=== PATIENT | male | born 1960 | race Caucasian/White ===

== ENCOUNTER 2017-01-21 08:40 | Emergency (ER) | payer OTHER ==
[~2017-01-21] VITALS: Ht 188 cm; Wt 129.0 kg
[~2017-01-21 08:40] MED LIST: OXYC-57 PO
[2017-01-21 08:47] VITALS: Ht 188 cm; Wt 129.0 kg
[2017-01-21] MEDS ORDERED: LEVO75TA PO (09:15)
[2017-01-21] MEDS ORDERED: LISI10TA PO (09:15)
--- NOTE | 2017-01-21 09:41 | EMERGENCY ROOM VISIT NOTE ---
ED Visit Note First contact with patient: 08:57 CHIEF COMPLAINT: Foot pain HISTORY OF PRESENT ILLNESS: This 56-year-old male patient presents to the emergency department complaining of swelling and pain in the right ankle and foot at rest and worse with weight bearing. The patient states about a week ago he was moving his motorcycle and he felt a sudden pain in his foot which has not gotten better. He states the pain and swelling has spread to his medial ankle, though he denies any twisting or other injury to the ankle. The patient rates the pain as aching and 5/10. The patient has Aleve with some relief of the pain. The patient is able to walk. No numbness or weakness. No ankle pain. There are no lacerations of the foot. The patient is able to move all of their toes and their ankle without pain. No previous fracture to this foot. Patient also complains of posterior calf swelling and tenderness that started yesterday. He does note a recent 3 hour plane trip earlier this week. REVIEW OF SYSTEMS: GENERAL: A 6 system review of systems was completed with positives and pertinent negatives in the HPI. ALLERGIES: NKA MEDICATIONS: Reviewed in chart PMH: HTN, hypothyroidism SOCIAL HISTORY: , lives with . Never smoker. PHYSICAL EXAM: Vital Signs: Reviewed Nurse's notes, vital signs stable. GENERAL : Pleasant and cooperative, in no acute distress, well-developed, well- nourished. MUSCULOSKELETAL: There is no visual deformity of the right foot. There is no erythema no ecchymosis. There is slight warmth. There is tenderness and swelling over the dorsum of the right foot. There is tenderness and moderate swelling over the medial ankle, but no tenderness over the lateral malleolus. No tenderness of the tib/fib. There is mild tenderness of the posterior knee and calf to palpation. Negative Homans sign. The range of motion of the right lower extremity is not limited secondary to pain. The skin is intact and there are no lacerations or puncture wounds. Dorsalis pedis pulse 2+. Capillary refill less than 2 seconds. IMAGING: RIGHT LOWER EXTREMITY VENOUS DOPPLER CLINICAL HISTORY: Right calf pain and swelling. Recent travel. COMPARISON STUDY: No previous studies for comparison. TECHNIQUE: Sonography of the deep venous system of the right lower extremity was performed. Compression and augmentation were evaluated. FINDINGS: The common femoral, superficial femoral and popliteal veins were compressible. Augmentation was normal. Note was made of deep venous thrombus within paired right posterior tibial veins.. IMPRESSION: Deep venous thrombus within the right posterior tibial veins. No [id number] thrombus. EMERGENCY DEPARTMENT COURSE: I examined the patient. An X-ray of the right foot and ankle was reviewed by myself and radiology and reveals no acute fracture, moderate medial ankle soft tissue swelling. Ultrasound duplex of the RLE shows acute DVT. Labs were checked to assess platelet count, renal function, and establish a baseline PT/INR. The patient was given bedside education by Jessica, Pharm-D regarding Lovenox injections and Coumadin therapy. Patient was given his first doses here in the emergency department. Patient was instructed to follow up with his PCP regarding his anticoagulation initiation therapy, as the coagulation clinic did not have any available appointment in the near future. Patient was also given strict return precautions, he verbalized understanding. The patient was discharged home in good condition. Medication Reconciliation: I attest that I have personally reviewed the patient' s current medication list. Blood pressure screening: The patient was found to have an elevated blood pressure and was referred to their primary doctor for recheck and further treatment. I discussed the patient with Dr. Berkowitz, who agrees with my assessment and disposition. Current/Historical Medications Scheduled Enoxaparin (Lovenox), 120 MG SQ Q12 Levothyroxine Sodium (Synthroid), 75 MCG PO DAILY Lisinopril (Prinivil), 10 MG PO DAILY Warfarin Sodium (Coumadin), 5 MG PO DAILY Allergies Coded Allergies: No Known Allergies (Verified , 01/21/17) Vital Signs Date Time Temp Pulse Resp B/P (MAP) Pulse Ox O2 Delivery O2 Flow Rate FiO2 01/21/17 14:26 36.9 77 18 133/75 96 01/21/17 14:11 77 18 133/75 96 Room Air 01/21/17 12:10 87 18 114/82 95 Room Air 01/21/17 10:17 82 16 122/84 97 Room Air 01/21/17 08:47 36.9 91 18 140/103 97 Room Air Laboratory Results 01/21/17 11:30 Red Blood Count 5.54, Mean Corpuscular Volume 93.0, Mean Corpuscular Hemoglobin 33.0, Mean Corpuscular Hemoglobin Concent 35.5, Mean Platelet Volume 9.1, Neutrophils (%) (Auto) 58.1, Lymphocytes (%) (Auto) 22.7, Monocytes (%) (Auto) 9.8, Eosinophils (%) (Auto) 8.5, Basophils (%) (Auto) 0.5, Neutrophils # (Auto) 5.51, Lymphocytes # (Auto) 2.16, Monocytes # (Auto) 0.93, Eosinophils # (Auto) 0.81, Basophils # (Auto) 0.05 01/21/17 11:30 Test 01/21/17 11:30 White Blood Count 9.50 K/uL (4.8-10.8) Red Blood Count 5.54 M/uL (4.7-6.1) Hemoglobin 18.3 g/dL (14.0-18.0) Hematocrit 51.5 % (42-52) Mean Corpuscular Volume 93.0 fL (80-100) Mean Corpuscular Hemoglobin 33.0 pg (25-34) Mean Corpuscular Hemoglobin Concent 35.5 g/dl (32-36) Platelet Count 172 K/uL (130-400) Mean Platelet Volume 9.1 fL (7.4-10.4) Neutrophils (%) (Auto) 58.1 % Lymphocytes (%) (Auto) 22.7 % Monocytes (%) (Auto) 9.8 % Eosinophils (%) (Auto) 8.5 % Basophils (%) (Auto) 0.5 % Neutrophils # (Auto) 5.51 K/uL (1.4-6.5) Lymphocytes # (Auto) 2.16 K/uL (1.2-3.4) Monocytes # (Auto) 0.93 K/uL (0.11-0.59) Eosinophils # (Auto) 0.81 K/uL (0-0.5) Basophils # (Auto) 0.05 K/uL (0-0.2) RDW Standard Deviation 42.9 fL (36.4-46.3) RDW Coefficient of Variation 12.6 % (11.5-14.5) Immature Granulocyte % (Auto) 0.4 % Immature Granulocyte # (Auto) 0.04 K/uL (0.00-0.02) Prothrombin Time 10.5 SECONDS (9.0-12.0) Prothromb Time International Ratio 1.0 (0.9-1.1) Activated Partial Thromboplast Time 27.2 SECONDS (21.0-31.0) Partial Thromboplastin Ratio 1.0 Anion Gap 7.0 mmol/L (3-11) Est Creatinine Clear Calc Drug Dose 90.6 ml/min Estimated GFR () 70.7 Estimated GFR (Non- 61.0 BUN/Creatinine Ratio 15.4 (10-20) Calcium Level 9.0 mg/dl (8.5-10.1) Medications Administered Medications (Trade) Dose Ordered Sig/Arun Route Start Time Stop Time Status Last Admin Dose Admin Acetaminophen (Tylenol Tab) 1,000 mg NOW STAT PO 01/21/17 11:25 01/21/17 11:27 DC 01/21/17 11:54 1,000 MG Warfarin Sodium (Coumadin Tab) 5 mg NOW ONCE PO 01/21/17 12:15 01/21/17 12:16 DC 01/21/17 13:17 5 MG Enoxaparin Sodium (Lovenox Inj) 120 mg NOW ONCE SQ 01/21/17 12:15 01/21/17 12:16 DC 01/21/17 13:16 120 MG Departure Information Impression Primary Impression: Right leg DVT Dispostion Home / Self-Care Condition GOOD Prescriptions Enoxaparin (LOVENOX) 120 Mg/0.8 Ml Inj 120 MG SQ Q12 for 7 Days, #14 SYR Prov: Claudine Green CRNP 01/21/17 Warfarin Sodium (COUMADIN) 5 Mg Tab 5 MG PO DAILY for 14 Days, #14 TAB Prov: Claudine Green CRNP 01/21/17 Referrals Serena Betancourt D.O. (PCP) Patient Instructions Coumadin, ED DVT, Enoxaparin injection, My [facility] Additional Instructions Follow up closely with your PCP for management of your blood thinner medication. Call today for an appointment. You have been started on two blood thinner medications to treat your blood clot in your right leg. Lovenox injections twice a day for the next 7 days. Coumadin 5 mg tablet once a day in the evening. Both of these medications will increase your risk of bleeding. If you have any cuts, hit your head, or have any other significant injury, you MUST go to the ER for evaluation. You will need to have your levels closely monitored until you are at a stable level. Please return to the emergency department for any worsening symptoms, including chest pain, trouble breathing, severe dizziness or passing out, increasing pain/ swelling/redness of the leg, or any other concerns. Problem Qualifiers Primary Impression: Right leg DVT Affected thrombotic vein of extremity: tibial Chronicity: acute Qualified Codes: I82.441 - Acute embolism and thrombosis of right tibial vein
--- NOTE | 2017-01-21 09:44 | DIAGNOSTIC IMAGING REPORT ---
RIGHT ANKLE MIN 3 VIEWS ROUTINE CLINICAL HISTORY: Medial ankle pain and swelling following injury. COMPARISON: None FINDINGS: Alignment of the right ankle is anatomic. There is no acute fracture. Talar dome is intact. There is moderate medial ankle soft tissue swelling. Note is made of minimal posterior and plantar calcaneal spurring. IMPRESSION: 1. No acute fracture or dislocation of the right ankle. 2. Moderate medial ankle soft tissue swelling. Electronically signed by: Deacon Smith M.D. 01/21/2017 9:42 AM Dictated Date/Time: 01/21/2017 9:41 AM
--- NOTE | 2017-01-21 09:45 | DIAGNOSTIC IMAGING REPORT ---
RIGHT FOOT MIN 3 VIEWS ROUTINE CLINICAL HISTORY: Mid foot pain after lifting heavy object. COMPARISON: None FINDINGS: Tarsometatarsal joints are in intact. Incidental note is made of a bipartite medial sesamoid of the right great toe. No acute fracture is identified within the right foot. Note is made of mild posterior and plantar calcaneal spurring. IMPRESSION: No acute fracture or dislocation of the right foot. Electronically signed by: Deacon Smith M.D. 01/21/2017 9:44 AM Dictated Date/Time: 01/21/2017 9:43 AM
--- NOTE | 2017-01-21 10:51 | DIAGNOSTIC IMAGING REPORT ---
RIGHT LOWER EXTREMITY VENOUS DOPPLER CLINICAL HISTORY: Right calf pain and swelling. Recent travel. COMPARISON STUDY: No previous studies for comparison. TECHNIQUE: Sonography of the deep venous system of the right lower extremity was performed. Compression and augmentation were evaluated. FINDINGS: The common femoral, superficial femoral and popliteal veins were compressible. Augmentation was normal. Note was made of deep venous thrombus within paired right posterior tibial veins.. IMPRESSION: Deep venous thrombus within the right posterior tibial veins. No [id number] thrombus. Electronically signed by: Deacon Smith M.D. 01/21/2017 10:50 AM Dictated Date/Time: 01/21/2017 10:48 AM
[2017-01-21] MEDS ORDERED: ACETAMINOPHEN 500 MG TAB PO STA (11:25)
[2017-01-21 11:49] LABS: BASO % 0.5 %; BASO ABS # 0.05 K/uL (0-0.2); COMPLETE YES; EOS % 8.5 %; HEMATOCRIT 51.5 % (42-52); IG% 0.4 %; LYMPH % 22.7 %; LYMPH ABS # 2.16 K/uL (1.2-3.4); MEAN CORPUSCULAR HGB CONC 35.5 g/dl (32-36); MEAN PLATELET VOLUME 9.1 fL (7.4-10.4); MONO % 9.8 %; NEUT % 58.1 %; PLATELET COUNT 172 K/uL (130-400); RED BLOOD COUNT 5.54 M/uL (4.7-6.1)
[2017-01-21 12:00] LABS: PROTHROMBIN TIME (PATIENT) 10.5 SECONDS (9.0-12.0)
[2017-01-21 12:06] LABS: BUN/CREATININE RATIO 15.4 (10-20); CREATININE 1.3 mg/dl (0.60-1.40); POTASSIUM 4.4 mmol/L (3.5-5.1)
[2017-01-21] MEDS ORDERED: WARFARIN SOD 5 MG TAB PO ONE (12:15)
[2017-01-21] MEDS ORDERED: ENOXAPARIN 120 MG/0.8 ML SYR SQ ONE (12:15)
[2017-01-21] MEDS ORDERED: WARF5TAB90 PO (12:16)
[2017-01-21] MEDS ORDERED: ENOX120I SQ (12:16)
--- NOTE | 2017-01-21 13:42 | Pharmacy Progress Note ---
ED Pharmacist Counseling Note Date of Service: Jan 21, 2017. Patient with new-onset DVT. I spent 30 minutes with the patient and his discussing outpatient management as follows. Weight: 129 kg SCr: 1.3 mg/dL eCrCL: > 30 mL/min Baseline INR: 1.0 Hgb: 18.3 g/dL Plt count: 172 K/uL Home medications: levothyroxine, lisinopril Enoxaparin Dose: 120 mg SC q12h Discussed length of therapy and plan to discontinue once INR therapeutic Discussed proper subQ injection technique and needle disposal Patient completed first self-injection in the ED with nursing supervision/ guidance Warfarin Dose: 5 mg po daily, 1st dose 01/21 in the ED Patient's current outpatient prescriptions were reviewed Discussed the following with the patient Goal INR range 2-3 Importance of outpatient follow-up / INR monitoring Drug interactions and importance of consistency Avoidance of NSAIDs Dietary considerations and importance of consistency Signs/symptoms of bleeding Signs/symptoms of clot Length of therapy - likely 3 months for provoked DVT (recent 3 hr plane ride) [facility] An[facility] Coordination Called [facility] centralized scheduling and attempted to make appointment. However, Dr. Fleming unavailable until 02/01. Recommended following with PCP until [facility] can follow/monitor, if patient and desire to do so. Informed patient and who are aware. Recommended appointment Tuesday or Tuesday (day 3 or 4 of warfarin, respectively). Discharge materials provided to patient Alcohol swabs "Enoxaparin Lovenox" handout (on [employer]) "What to known when taking warfarin" handout (on [employer]) "[id number]: Giving Yourself a Shot" handout (on [employer])
[2017-01-21 14:26] VITALS: BP 133/75; PULSE 77; TEMP 36.9; O2SAT 96
== END 2017-01-21 14:30 | disposition home or self-care (01) ==
LOC: C.EDB 08:41
DX: I82.441 Acute embolism and thrombosis of right tibial vein (principal); I10 Essential (primary) hypertension; E03.9 Hypothyroidism, unspecified

== ENCOUNTER → 2017-05-13 | Outpatient (CLI) | payer OTHER ==
[~2017-05-13] MED LIST changes: +LEVO75TA PO; +LISI10TA PO; -OXYC-57 PO
--- NOTE | 2017-05-13 13:12 | DIAGNOSTIC IMAGING REPORT ---
R VENOUS DOPP LOWER EXT UNILAT HISTORY: 56 years-old Male ACUTE DVT right lower cavity swelling. Follow-up study in a patient with prior right posterior tibial vein DVT COMPARISON: Duplex venous study 01/21/2017 TECHNIQUE: Multiple real-time sonographic images of the deep venous structures of the right lower extremity were obtained assessing grayscale appearance, color and spectral flow FINDINGS: Occlusive thrombus is noted within one of the two paired posterior tibial veins. There is some stranding within the peroneal vein suggesting fibrin without occlusive thrombus. The remaining deep venous structures are patent and within normal limits. IMPRESSION: 1. Occlusive deep venous thrombosis is noted within one of the two paired posterior tibial veins. 2. Fibrin stranding of the peroneal vein without occlusive thrombus. 3. No deep venous thrombosis noted above the level of the knee. The above report was generated using voice recognition software. It may contain grammatical, syntax or spelling errors. Electronically signed by: Jamey Jade M.D. 05/13/2017 1:10 PM Dictated Date/Time: 05/13/2017 1:08 PM
== END | disposition home or self-care (01) ==
LOC: C.ULTR 12:35
PROVIDERS: ATTEND Internal Medicine Hematology
DX: I82.441 Acute embolism and thrombosis of right tibial vein (principal); I82.4Z1 Acute embolism and thrombosis of unspecified deep veins of right distal lower extremity

== ENCOUNTER → 2017-08-24 | Outpatient (CLI) | payer OTHER ==
--- NOTE | 2017-08-24 16:18 | DIAGNOSTIC IMAGING REPORT ---
RIGHT LOWER EXTREMITY VENOUS DOPPLER CLINICAL HISTORY: ACUTE DVT OF RT TIBIAL VEIN COMPARISON STUDY: Right lower extremity venous Doppler May 13, 2017. TECHNIQUE: Sonography of the deep venous system of the right lower extremity was performed. Compression and augmentation were evaluated. FINDINGS: The common femoral, superficial femoral and popliteal veins were compressible. Augmentation was normal. Flow was shown within the deep calf vessels. The deep venous thrombus shown within the right posterior tibial vein on exam of May 13, 2017 is no longer visualized. IMPRESSION: No evidence of deep venous thrombus within the right lower extremity. Electronically signed by: Deacon Smith M.D. 08/24/2017 4:17 PM Dictated Date/Time: 08/24/2017 4:15 PM
== END | disposition home or self-care (01) ==
LOC: C.ULTRBC 15:11
PROVIDERS: ATTEND Physician Assistant
DX: I82.441 Acute embolism and thrombosis of right tibial vein (principal)

== ENCOUNTER → 2017-09-01 | Outpatient (CLI) | payer OTHER ==
[2017-09-01 15:04] LABS: BLOOD UREA NITROGEN 15 mg/dl (7-18); CALCIUM 9.5 mg/dl (8.5-10.1); CARBON DIOXIDE 27 mmol/L (21-32); CREATININE 1.28 mg/dl (0.60-1.40); GLUCOSE 77 mg/dl (70-99); SODIUM 137 mmol/L (136-145)
[2017-09-01 15:14] LABS: CHOLESTEROL 206 mg/dl (0-200); LDL CHOLESTEROL CALCULATED 108 mg/dl
== END | disposition home or self-care (01) ==
LOC: C.LAB1850 13:28
PROVIDERS: ATTEND Physician Assistant
DX: I82.441 Acute embolism and thrombosis of right tibial vein (principal); D58.2 Other hemoglobinopathies; Z12.5 Encounter for screening for malignant neoplasm of prostate; I10 Essential (primary) hypertension; E03.8 Other specified hypothyroidism; Z13.220 Encounter for screening for lipoid disorders